=== PATIENT | male | born 1990 | race Caucasian/White ===

== ENCOUNTER 2020-06-25 16:57 | Inpatient (IN) | payer MEDICARE, MEDICAID, SELFPAY ==
[2020-06-25] VITALS (16 sets, daily range): BP systolic 170–248; BP diastolic 86–134; PULSE 65–81; RESP 15–28; TEMP 37.1; O2SAT 95–100
--- NOTE | ~2020-06-25 | XR_ITS ---
XR chest 1V portable 06/25/2020 18:02 Indication: Shortness of breath. Hypertension. Procedure: AP portable chest Comparison: No prior studies for comparison. Findings: Cardiomegaly with interstitial edema. No pleural effusion or pneumothorax. No acute osseous abnormality. Impression: 1: Moderate cardiomegaly with interstitial edema. Reviewed, dictated and finalized at location A. Impression: 1: Moderate cardiomegaly with interstitial edema.
--- NOTE | 2020-06-25 17:10 | ECG_ITS ---
Measurements Intervals [place] Rate: 80 P: 5 WI: 181 QRS: 11 QRSD: 107 T: 122 QT: 411 QTc: 477 Interpretive Statements SINUS RHYTHM DELAYED PRECORDIAL R/S TRANSITION LEFT VENTRICULAR HYPERTROPHY WITH ST-T CHANGE ST-T WAVE ABNORMALITY IN HIGH LATERAL LEADS- CONSIDER ISCHEMIA BASELINE ARTIFACT- V5 ABNORMAL ECG Electronically Signed On 06-25-2020 19:44:27 CDT by Patrick Sam D.O.
--- NOTE | 2020-06-25 17:22 | ED.GENADULT ---
HPI - General Adult General Chief complaint: Recheck/Abnormal Lab/Rx Stated complaint: elevated bp Time Seen by Provider: 06/25/20 17:10 Source: patient and family History of Present Illness HPI narrative: Patient is a 29 y/o male complaining of chronic, moderate SOB that has been going on for more than 1 year. He states that his SOB is worse with exertion. He can not lay down for sleep and he has to sleep in a chair. He also has been having chronic mild mid sternal chest pain for several month. He has been out of his medications because he missed appointments with his previous doctor. He saw Dr. Rodriguez today as new patient today. He was directed to be evaluated in ED because his BP was extremely high in the office. Related Data Allergies Allergy/AdvReac Type Severity Reaction Status Date / Time No Known Allergies Allergy Unverified 06/25/20 15:20 Review of Systems Constitutional: Constitutional: Denies chills, Denies fever(s), Denies headache(s) and Denies weakness Eyes: Eyes: Denies blurry vision ENT: Denies headache(s) and Denies neck pain Cardiovascular: Cardiovascular: Reports chest pain and Reports dyspnea Respiratory: Respiratory: Denies cough and Reports dyspnea Gastrointestinal: Gastrointestinal: Denies abdominal pain, Denies diarrhea, Denies nausea and Denies vomiting Genitourinary: Genitourinary: Denies hematuria and Denies dysuria Musculoskeletal: Musculoskeletal: Denies back pain and Denies neck pain Neurologic: Denies headache(s) and Denies weakness PMFSH Past Medical History Medical History Broken femur Depression with anxiety Headache, migraine Sleep apnea Surgical History Surgical History Hx of tonsillectomy Lower extremity surgery planned broken femur, with graph Family History Family History Mother Cancer Fibromyalgia Vascular problem Obese Father Cancer Obese Grandparent Diabetes mellitus Hypertension Obese CHF (congestive heart failure) Social History Social History Smoking status: Never smoker Second hand tobacco smoke exposure: Yes Alcohol intake: never Substance use type: does not use Gender identity (if verbalized by the patient): Male Spiritual care concerns: No Exam Const: General: no acute distress and well developed Nutritional Appearance: obese Orientation/consciousness: oriented to person, oriented to place, oriented to time and patient oriented x3 HENMT: Head: normocephalic Ears: external ears normal General nose exam: Normal external nose present Eyes: General: appearance normal, both eyes and all related structures Conjunctivae: conjunctivae normal Neck: Neck: normal visual inspection and full ROM Chest: Chest palpation & inspection: normal inspection of the chest and no tenderness Resp: Effort & Inspection: normal respiratory effort Auscultation: clear to auscultation bilaterally Cardio: Rate: regular rate Rhythm: regular rhythm GI: GI Palp: No abdominal tenderness and Yes Soft to palpation Skin: General skin exam: normal color and turgor normal Neuro: General: oriented to person, oriented to place, oriented to time and patient oriented x3 Cognition (Neuro): normal cognition Extrem: General: normal to inspection, full ROM and no pedal edema Psych: Appearance: grossly normal Mental Status: mental status grossly normal Affect: normal affect Course Consultations Consultation #1: Discussed with NAILA Ca, who agrees to admit. Date: 06/25/20 Time: 18:30 Vital Signs Vital signs: Vital Signs Pulse Rate 80 06/25/20 17:17 Respiratory Rate 20 06/25/20 17:17 Blood Pressure 248/134 H 06/25/20 17:17 Pulse Oximetry 100 06/25/20 17:17 Pulse Rate 76 06/25/20 19:01 Respiratory Rate 17 06/25/20
[2020-06-25 17:42] LABS: Basophils Percent Auto 0.3 % (0.2-1.2); Eosinophils Absolute Auto 0.4 K/mm3 (0-0.3); Eosinophils Percent Auto 4.2 % (0-4.4); Hematocrit 34.7 % (42.0-52.0); Hemoglobin 10.3 g/dL (14.0-18.0); Immature Granulocyte Absolute 0.04 K/mm3 (0.00-0.031); Immature Granulocyte Percent A 0.4 % (0-0.5); Lymphocytes Absolute Auto 1.54 K/mm3 (0.9-3.2); Lymphocytes Percent Auto 16.1 % (18.3-44.2); Mean Corpuscular HGB Conc 29.7 g/dl (32-36); Mean Corpuscular Volume 77.6 fl (80-100); Mean Platelet Volume 10.7 fl (7.4-10.4); Monocytes Absolute Auto 0.6 K/mm3 (0.1-0.6); Monocytes Percent Auto 6.5 % (2.6-8.5); Neutrophils Percent Auto 72.5 % (45.5-73.1); Platelet Count Result 272 k/mm3 (150-375); Red Blood Count 4.47 M/mm3 (4.6-6.20); Red Cell Distribution Width 15.6 % (11.5-14.5); White Blood Count 9.6 K/mm3 (4.5-10.0)
[2020-06-25 17:48] LABS: Hypochromasia 1+ (NORMAL); Platelet Estimate Adequate (Adequate)
[2020-06-25] MEDS: amLODIPine BESYLATE 5 MG TABLET 10 MG PO (17:49)
[2020-06-25] MEDS: LABETALOL HCL INJ 100 MG/20 ML VIAL 20 MG IV PUSH (17:49)
[2020-06-25 17:54] LABS: Alanine Aminotransferase 25 U/L (4-50); Albumin Level 3.8 g/dL (3.5-5.1); Alkaline Phosphatase 77 U/L (38-126); Anion Gap 7 mmol/L (8-16); Aspartate Amino Transferase 28 U/L (17-59); Bilirubin,Total 0.3 mg/dL (0.2-1.3); Blood Urea Nitrogen 17 mg/dL (9-20); Calcium 8.5 mg/dL (8.4-10.2); Carbon Dioxide 27 mmol/L (22-30); Chloride 104 mmol/L (98-107); Estimated CRCL calculation 215 ml/min; Estimated Glomerular Filt Rate > 60; Glucose 116 mg/dL (75-110); Potassium 3.9 mmol/L (3.4-5.0); Sodium 138 mmol/L (137-145)
[2020-06-25 18:12] LABS: NT Pro B Type Natriuretic Pept 988 PG/ML (5-100); Troponin I 0.049 ng/mL (0.000-0.034)
[2020-06-25] MEDS: hydroCHLOROthiazide 25 MG TABLET PO (18:15)
[2020-06-25] MEDS: lisinopriL 20 MG TABLET PO (18:16)
[2020-06-25] MEDS: FUROSEMIDE INJ 40 MG/4 ML VIAL IV PUSH (18:51)
--- NOTE | 2020-06-25 19:51 | PC.NURSE ---
This patient, Enoc Guan Jr., was admitted to Intensive Care Unit-12. Patient/family oriented to hospital policies and general routines including ID bracelet, bed and alarms, visiting hours, pain management, procedures, bathroom and other care routines, personal items, smoking policy, room service/diet, and visiting hours. Valuables list has been completed. Information on how to activate the Rapid Response Team has been discussed. Patient/Family are encouraged to report perceived risks to care and to ask questions if they do not understand what they are told or what they should do.
[2020-06-25] MEDS: cloNIDine HCL 0.2 MG TABLET PO (20:39)
[2020-06-25 22:08] LABS: Troponin I 0.053 ng/mL (0.000-0.034)
--- NOTE | 2020-06-25 23:07 | PM.IMHP ---
H&P: HPI History of Present Illness Date/Time: 06/25/20 21:15 Chief complaint: shortness of breath Narrative: Enoc Guan Jr. is a 29 year old male With a past medical history of super morbid obesity , chronic lymphedema, hypertension and CHF who presented to the ER from primary care provider's office due to shortness of breath and uncontrolled hypertension. The patient had presented to Primary care provider's office to be established his were as high as 220/110 at the office. The patient has had difficulty with shortness of breath, orthopnea, paroxysmal nocturnal dyspnea, and worsening lower extremity edema on and off for the last year and a half. He was last hospitalized for said symptoms in February of 2020 at [facility]. He reports that he was discharged on several medications but he does not know the names of the medications. He stated the yet the medications filled but there is no record of the medications on external med history. The patient reported either got the meds filled at [facility] or [facility]. He states that he has not weighed himself in at least 5 years. He did not know what he was weight Was when he was hospitalized at [facility]. He knows that he was discharged on a blood pressure medicine that was once a day another blood pressure medicine that was twice a day and a diuretic. He has not taken any medications at least since March. He does not have a blood pressure cuff at home. He reports worsening dyspnea with exertion. He does have increased chest pressure any time he gets up and walks. He attributes this to his obesity. He did have a sleep study as a child that was inconclusive. He reports that he sleeps sitting up in a chair. He cannot sleep in a bed because he starts to panic and cannot breathe. He reports that he has given up on even trying to lose weight. He is apathetic and has no interest in discussing weight loss options. he reports that he was always a chunky child. Once he was in late grade school his weight became a problem. Review of Systems Review of Systems: Narrative: 12 systems were reviewed with pertinent positives and negatives per HPI. Except as documented in the HPI, all other systems were reviewed and are negative. [facility] Past Medical History Medical History (Updated 06/26/20 @ 01:35 by Namita Ferrera DO) CHF (congestive heart failure) Depression with anxiety Headache, migraine Hypothyroidism Morbid obesity with BMI of 70 and over, adult Surgical History Surgical History (Updated 06/25/20 @ 23:09 by Namita Ferrera DO) Broken femur left femur fracture with ORIF approximately 2011 Hx of tonsillectomy Family History Family History Mother Cancer Fibromyalgia Vascular problem Obese Father Cancer Obese Grandparent Diabetes mellitus Hypertension Obese CHF (congestive heart failure) Social History Social History (Updated 06/26/20 @ 01:25 by Namita Ferrera DO) Social History: The patient lives in low-income housing . He is on state aid. He is independent in activities of daily living. He spends much of his day playing video games. He has a cat at home. Primary care provider: Josephine Loredo NP Smoking status: Never smoker Second hand tobacco smoke exposure: Yes Alcohol intake: never Substance use type: does not use Gender identity (if verbalized by the patient): Male Spiritual care concerns: No Meds Home Medications and Allergies Home Medications Medication Instructions Recorded Confirmed Type Unable to Obtain Home Medications 06/25/20 06/25/20 History Allergies Allergy/AdvReac Type Severity Reaction Status Date / Time No Known Allergies Allergy Unverified 06/25/20 15:20 Vital Signs Vital Signs - 24 hr 06/25/20 17:17 06/25/20 17:51 06/25/20 17:54 Temperature Pulse Rate 80 81 68 Respiratory Rate 20 20 20 Blood Pre
[2020-06-25] MEDS: ACETAMINOPHEN 325 MG TABLET 650 MG PO (23:45)
[2020-06-26] VITALS (9 sets, daily range): BP systolic 166–187; BP diastolic 82–122; PULSE 59–78; RESP 19–28; TEMP 36.3–37.2; O2SAT 96–99
--- NOTE | 2020-06-26 | ECHO_ITS ---
Patient Info Name: Enoc Guan Age: 29 years : 1990 Gender: Male Ht: 71 in Wt: 686 lbs BSA: 4.17 m2 HR: 67 bpm BP: 187 / 122 mmHg Technical Quality: Good Exam Date: 06/26/2020 7:52 AM Exam Location: [facility] Patient Status: Inpatient Admit Date: 06/25/2020 Staff Ordering Physician: Namita Ferrera DO Cloth Calender: Joey Lewis RDCS, RT Attending Provider: Kee Seals MD Referring Physician: Maisha BRIGHT; Exam Type: CA echo dop color flow w con Study Info Indications I11.0 - Hypertensive heart disease with heart failure Complete two-dimensional, color flow and Doppler transthoracic echocardiogram is performed with contrast to opacify the left ventricle and to improve the deliniation of the left ventricle endocardial borders. Summary 1. Left ventricular chamber dimension is moderately enlarged. 2. Definity contrast administered improved wall motion interpretation. 3. Left ventricular systolic function is normal, estimated at 55-60%. 4. There is moderately increased left ventricular wall thickness. 5. The left ventricular diastolic function is grade III diastolic dysfunction. 6. E/e' 27 is significantly elevated. 7. Left atrial chamber dimension is mildly enlarged. 8. There is trace mitral valve regurgitation. 9. There is trace pulmonic regurgitation. 10. The aortic root size at the sinus of Valsalva is mildly dilated at 4.1 cm. 11. Dilated inferior vena cava with <50% collapse upon inspiration consistent with significantly elevated right atrial pressure, 15 mmHg. Left Ventricle E/e' 27 is significantly elevated. Definity contrast administered improved wall motion interpretation. Left ventricular chamber dimension is moderately enlarged. Left ventricular systolic function is normal, estimated at 55-60%. There is moderately increased left ventricular wall thickness. The left ventricular diastolic function is grade III diastolic dysfunction. Right Ventricle Right ventricular chamber dimension is not well visualized. Left Atria Left atrial chamber dimension is mildly enlarged. Right Atria Right atrial chamber dimension is not well visualized. Aortic Valve The aortic valve is trileaflet. There is no aortic valve stenosis. There is no aortic valve regurgitation. Pulmonic Valve There is trace pulmonic regurgitation. Mitral Valve There is no mitral valve stenosis. There is trace mitral valve regurgitation. Tricuspid Valve There is no tricuspid valve regurgitation. Pericardium/Pleural There is no pericardial effusion. Inferior Vena Cava Dilated inferior vena cava with <50% collapse upon inspiration consistent with significantly elevated right atrial pressure, 15 mmHg. Aorta The aortic root size at the sinus of Valsalva is mildly dilated at 4.1 cm. Left Ventricular Outflow Tract Name Value Normal LVOT 2D LVOT Diameter 2.84 cm LVOT Doppler LVOT Peak Gradient 3 mmHg LVOT Mean Gradient 2 mmHg LVOT VTI 16.33 cm LVOT VTI/AV VTI Ratio 0.71
[2020-06-26 00:23] LABS: Cholesterol 166 mg/dL (0-200); HDL Direct 24 mg/dL; Triglycerides 90 mg/dL (<150)
[2020-06-26 00:34] LABS: LDL Cholesterol Direct 118 mg/dL
[2020-06-26 00:50] LABS: Iron 25 ug/dL (49-181)
[2020-06-26 01:01] LABS: Percent Iron Saturation 7 % (20-50)
[2020-06-26 01:28] LABS: Folic Acid 8.2 ng/mL (2.76->20)
[2020-06-26 02:51] LABS: Free T4 Free Thyroxine Reflex 0.88 ng/dL (0.78-2.19)
[2020-06-26 03:34] LABS: Total Triiodothyronine (T3) 1.04 NG/ML (0.97-1.69)
[2020-06-26 03:57] LABS: Hemoglobin A1C 5.4 % (<5.7)
[2020-06-26] MEDS: PERFLUTREN LIPID MICROSPHERES 1.5 ML VIAL DILUTED TO 10 ML TOTAL VOLUME IV PUSH (08:32)
[2020-06-26 08:59] LABS: Hemoglobin 9.8 g/dL (14.0-18.0); Mean Corpuscular HGB Conc 29.7 g/dl (32-36); Mean Corpuscular Hemoglobin 23.2 pg (26-34); Mean Platelet Volume 10.4 fl (7.4-10.4); Platelet Count Result 251 k/mm3 (150-375); Red Blood Count 4.23 M/mm3 (4.6-6.20); Red Cell Distribution Width 15.4 % (11.5-14.5); White Blood Count 8.4 K/mm3 (4.5-10.0)
[2020-06-26] MEDS: CYANOCOBALAMIN INJ 1,000 MCG/ML VIAL 1000 MCG IM (09:00)
[2020-06-26] MEDS: ENOXAPARIN 40 MG/0.4 ML SYRINGE SUB-Q ×2 (09:01→21:04)
[2020-06-26] MEDS: amLODIPine BESYLATE 5 MG TABLET PO ×2 (09:02→12:45)
[2020-06-26] MEDS: lisinopriL 20 MG TABLET PO (09:02)
[2020-06-26] MEDS: PANTOPRAZOLE 40 MG TABLET PO (09:02)
[2020-06-26 09:15] LABS: Anion Gap 5 mmol/L (8-16); Blood Urea Nitrogen 14 mg/dL (9-20); Calcium 8.5 mg/dL (8.4-10.2); Carbon Dioxide 30 mmol/L (22-30); Chloride 102 mmol/L (98-107); Estimated CRCL calculation 215 ml/min; Estimated Glomerular Filt Rate > 60; Glucose 108 mg/dL (75-110); Potassium 3.4 mmol/L (3.4-5.0); Sodium 137 mmol/L (137-145)
[2020-06-26] MEDS: POTASSIUM CHLORIDE 20 MEQ TABLET 40 MEQ PO (12:28)
[2020-06-26] MEDS: ACETAMINOPHEN 325 MG TABLET 650 MG PO ×2 (12:28→23:11)
--- NOTE | 2020-06-26 13:43 | PC.NURSE ---
This patient, Enoc Guan Jr., was transferred to [facility] on 06/26/20 at 1339. Personal belongings sent with patient. Belongings list checked and signed with receiving. Report given to ADIN Ford. Appropriate documentation sent with patient.
--- NOTE | 2020-06-26 16:10 | PM.IMPN ---
Progress Note: A&P Assessment and Plan (1) Hypertensive urgency: Code(s): I16.0 - Hypertensive urgency Status: Acute Assessment and Plan: The patient was given lisinopril And Norvasc in the ER as well as Lasix. he received a dose of clonidine shortly after arrival to the ICU. . Will continue patient on Norvasc and lisinopril. Will add additional medications as needed. do not want to drop his pressure too rapidly which would due to decreased renal perfusion. Repeat echo here today revealed some diastolic dysfunction as below, continue IV Lasix (2) CHF (congestive heart failure): Qualifiers: Heart failure chronicity: unspecified Heart failure type: unspecified Qualified Code(s): I50.9 - Heart failure, unspecified Code(s): I50.9 - Heart failure, unspecified Status: Acute Assessment and Plan: The patient reports that he always responds well to Lasix. He denies an actual diagnosis of CHF but has been told that if factors do not change that he will have worsening cardiac issues EF today 55-60% but grade 3 diastolic dysfunction. continue to control blood pressure and continue diuresing for now (3) Depression with anxiety: Code(s): F41.8 - Other specified anxiety disorders Status: Acute Assessment and Plan: patient would benefit from counseling and or from a clot ext treatment for his longstanding depression which he reports has been present since childhood. (4) Morbid obesity with BMI of 70 and over, adult: Code(s): E66.01 - Morbid (severe) obesity due to excess calories; Z68.45 - Body mass index (BMI) 70 or greater, adult Status: Acute Assessment and Plan: The patient reports that he has not interested in diet and lifestyle modification information. The risk of continued extreme obesity were discussed with the patient in detail including heart failure, , diabetes and skin infections among other issues by Dr. Ferrera. A calorie calculator suggests that the patient has to be eating around 4800 calories a day to maintain his current weight. (5) Obstructive sleep apnea: Code(s): G47.33 - Obstructive sleep apnea (adult) (pediatric) Status: Acute Assessment and Plan: likely obstructive sleep apnea and would not be surprised the patient did not have some obesity hypoventilation component. Apnea link has been ordered (6) Hypothyroidism: Qualifiers: Hypothyroidism type: unspecified Qualified Code(s): E03.9 - Hypothyroidism, unspecified Code(s): E03.9 - Hypothyroidism, unspecified Status: Acute Assessment and Plan: patient has been noncompliant with medications. TSH borderline elevated at 4.7 and hemoglobin A1c normal at 5.4 (7) Anemia: Qualifiers: Anemia type: iron deficiency Iron deficiency anemia type: inadequate dietary iron intake Qualified Code(s): D50.8 - Other iron deficiency anemias Code(s): D64.9 - Anemia, unspecified Status: Acute Assessment and Plan: given microcytic indices this is likely iron deficiency anemia. and iron studies are compatible with the same Protonix p.o. and replace iron IV B12 low normal also 221 so on IM B12 also given Subjective Date/time seen: 06/26/20 16:10 Interval history: date of visit 06/26. 29-year-old obese male with hypertension admitted from his physician's office with accelerated hypertension and increasing shortness of breath.. This a.m. pressures down patient today feels better. Never had any palpitation or chest discomfort. Exam Narrative: Exam Narrative: Blood pressure 176/82 pulse 74 saturating 99% on room air afebrile lungs clear CV regular rate rhythm no murmurs abdomen morbidly obese nontender extremities are some chronic lymphedema type changes but no pitting edema Objective Data Vital Signs Vital Signs: Vital Signs - 24 hr
[2020-06-27 05:42] LABS: Basophils Percent Auto 0.4 % (0.2-1.2); Eosinophils Absolute Auto 0.4 K/mm3 (0-0.3); Eosinophils Percent Auto 4.5 % (0-4.4); Hematocrit 32.2 % (42.0-52.0); Hemoglobin 9.7 g/dL (14.0-18.0); Immature Granulocyte Absolute 0.06 K/mm3 (0.00-0.031); Immature Granulocyte Percent A 0.7 % (0-0.5); Lymphocytes Absolute Auto 2.41 K/mm3 (0.9-3.2); Lymphocytes Percent Auto 26.7 % (18.3-44.2); Mean Corpuscular HGB Conc 30.1 g/dl (32-36); Mean Corpuscular Hemoglobin 23.3 pg (26-34); Mean Corpuscular Volume 77.4 fl (80-100); Mean Platelet Volume 10.4 fl (7.4-10.4); Monocytes Absolute Auto 0.7 K/mm3 (0.1-0.6); Monocytes Percent Auto 7.5 % (2.6-8.5); Neutrophils Absolute Auto 5.4 K/mm3 (1.3-6.7); Neutrophils Percent Auto 60.2 % (45.5-73.1); Platelet Count Result 243 k/mm3 (150-375); Red Blood Count 4.16 M/mm3 (4.6-6.20); Red Cell Distribution Width 15.4 % (11.5-14.5)
[2020-06-27 06:00] VITALS: BP 205/95; PULSE 65; RESP 22; TEMP 36.3; O2SAT 99
[2020-06-27 06:01] LABS: Anion Gap 5 mmol/L (8-16); Blood Urea Nitrogen 14 mg/dL (9-20); Calcium 8.6 mg/dL (8.4-10.2); Carbon Dioxide 28 mmol/L (22-30); Chloride 102 mmol/L (98-107); Estimated CRCL calculation 235 ml/min; Estimated Glomerular Filt Rate > 60; Glucose 93 mg/dL (75-110); Potassium 3.9 mmol/L (3.4-5.0); Sodium 135 mmol/L (137-145)
[2020-06-27] MEDS: amLODIPine BESYLATE 5 MG TABLET 10 MG PO (06:46)
[2020-06-27] MEDS: lisinopriL 20 MG TABLET PO (06:47)
[2020-06-27] MEDS: ACETAMINOPHEN 325 MG TABLET 650 MG PO (07:21)
[2020-06-27] MEDS: PANTOPRAZOLE 40 MG TABLET PO (08:00)
[2020-06-27] MEDS: ENOXAPARIN 40 MG/0.4 ML SYRINGE SUB-Q (08:00)
--- NOTE | 2020-06-27 10:17 | P.CDI_ITS ---
CDI Query Clarification Request - CHF,unspecified type and unspecified chronicity has been documented -06/26 echo with EF 55-60%, grade III diastolic dysfunction -Lasix 40mg IV given in the ED x1 -CXR impression moderate cardiomegaly with interstitial edema Please further clarify type and acuity of CHF: * Systolic *Acute * Diastolic *Chronic * Both systolic and diastolic *Acute on chronic * Unable to determine *Unable to determine
[2020-06-27 11:25] VITALS: BP 156/97
[2020-06-27] MEDS: CYANOCOBALAMIN INJ 1,000 MCG/ML VIAL 1000 MCG IM (13:09)
[2020-06-27] MEDS: IRON SUCROSE COMPLEX 400 MG in SODIUM CHLORIDE 0.9% IV 250 ML 108 MG IVPB (13:09)
--- NOTE | 2020-06-27 14:15 | PM.DS ---
DS: Admitting Diagnosis Admitting Diagnosis Admitting Diagnosis: shortness of breath DS: Discharge Diagnosis Discharge Diagnosis (1) Hypertensive urgency: Code(s): I16.0 - Hypertensive urgency Status: Acute Assessment and Plan: The patient was given lisinopril And Norvasc in the ER as well as Lasix. he received a dose of clonidine shortly after arrival to the ICU. . continued patient on Norvasc and lisinopril. creatinine remain normal at 1.0. no beta-jennifer added since his heart rate was usually in the 50s or 60s echo revealed some diastolic dysfunction grade 3 with normal EF 55-60% (2) CHF (congestive heart failure): Qualifiers: Heart failure chronicity: unspecified Heart failure type: unspecified Qualified Code(s): I50.9 - Heart failure, unspecified Code(s): I50.9 - Heart failure, unspecified Status: Acute Assessment and Plan: probable acute on chronic diastolic heart failure EF 55-60% but grade 3 diastolic dysfunction. continue to control blood pressure no beta-jennifer was added due to the fact that is pulse was usually in the 50s or 60s (3) Morbid obesity with BMI of 70 and over, adult: Code(s): E66.01 - Morbid (severe) obesity due to excess calories; Z68.45 - Body mass index (BMI) 70 or greater, adult Status: Acute Assessment and Plan: The patient reports that he has not interested in diet and lifestyle modification information. although he did agree to start a walking program. The risk of continued extreme obesity were discussed with the patient in detail including heart failure, , diabetes and skin infections among other issues by Dr. Ferrera. A calorie calculator suggests that the patient has to be eating around 4800 calories a day to maintain his current weight. Significantly the apnea link was negative for sleep apnea with no hypoxia reported and AHI of 0 as stated above (4) Hypothyroidism: Qualifiers: Hypothyroidism type: unspecified Qualified Code(s): E03.9 - Hypothyroidism, unspecified Code(s): E03.9 - Hypothyroidism, unspecified Status: Acute Assessment and Plan: patient has been noncompliant with medications. TSH borderline elevated at 4.7 and hemoglobin A1c normal at 5.4 (5) Anemia: Qualifiers: Anemia type: iron deficiency Iron deficiency anemia type: inadequate dietary iron intake Qualified Code(s): D50.8 - Other iron deficiency anemias Code(s): D64.9 - Anemia, unspecified Status: Acute Assessment and Plan: given microcytic indices and iron studies are compatible with the same Protonix p.o. and replaced iron IV 700 mg divided over 2 days B12 low normal also 221 so on IM B12 1000 mg on 2 separate days will have follow-up CBC 07/10 and if remains anemic may need GI eval DS: Summary Hospital Course Hospital Course: 29-year-old morbidly obese hypertensive male admitted with hypertensive urgency and shortness of breath. Was treated with CHAU-inhibitor, amlodipine, and IV diuresis initially. Pressure came down and will be maintained on the CHAU-inhibitor and calcium channel jennifer. No beta-jennifer added due to the fact his heart rate was usually 50s to 60s. Echocardiogram revealed normal ejection fraction 55-60% with grade 3 diastolic dysfunction. Apnea link was negative for sleep apnea with AHI of 0 and no nocturnal hypoxia follow-up with lab and 2 weeks and primary care shortly thereafter Time Spent with Patient Time attestation: Total time spent providing and/or coordinating discharge services:35 minutes Exam Narrative: Exam Narrative: condition on discharge blood pressure 156/96 pulse is 66 saturating 99% on room air afebrile lungs clear CV regular rate rhythm extremities some lymphedema but no pitting edema up and about walking without shortness of breath much improved from admission and tabby
[2020-06-27 14:18] VITALS: BP 173/85; PULSE 68; RESP 20; TEMP 36.6; O2SAT 100
== END 2020-06-27 15:42 | disposition home or self-care (01) | DRG 304 ==
LOC: ANHED 18:40 → ANHICU 19:41 → ANH2MED 06-26 13:29
PROVIDERS: Internal Medicine; Admitting Provider Internal Medicine; Emergency Provider Emergency Medicine; PCP Internal Medicine; Visit Provider Internal Medicine
DX: I16.0 Hypertensive urgency (principal); I50.33 Acute on chronic diastolic (congestive) heart failure; Z68.43 Body mass index [BMI] 50.0-59.9, adult; I11.0 Hypertensive heart disease with heart failure; E03.9 Hypothyroidism, unspecified; E66.01 Morbid (severe) obesity due to excess calories; F41.8 Other specified anxiety disorders; I89.0 Lymphedema, not elsewhere classified; G47.33 Obstructive sleep apnea (adult) (pediatric); D50.8 Other iron deficiency anemias; Z91.14 Patient's other noncompliance with medication regimen
CPT/HCPCS: 36415; 71045; 80048; 80053; 80061; 82607; 82728; 82746; 83036; 83540; 83550; 83880; 84439; 84443; 84480; 84484; 85025; 85027; 93005; 94762; 96374; 96375; 99285; A9270; C8929; J1650; J1756; J1940; J3420; J7050; Q9957

== ENCOUNTER 2022-10-16 09:55 | Outpatient (CLI) | payer OTHER, SELFPAY ==
[2022-10-16 17:32] LABS: Alanine Aminotransferase 31 U/L (6-50); Albumin Level 4.1 g/dL (3.5-5.1); Alkaline Phosphatase 77 U/L (38-126); Anion Gap 3 mmol/L (8-16); Aspartate Amino Transferase 47 U/L (17-59); Bilirubin,Total 0.4 mg/dL (0.2-1.3); Blood Urea Nitrogen 11 mg/dL (9-20); Calcium 8.7 mg/dL (8.4-10.2); Carbon Dioxide 31 mmol/L (22-30); Chloride 101 mmol/L (98-107); Cholesterol 187 mg/dL (0-200); Estimated Glomerular Filt Rate > 60; Glucose 98 mg/dL (65-110); HDL Direct 28 mg/dL; Sodium 135 mmol/L (137-145); Triglycerides 89 mg/dL (<150)
[2022-10-16 17:43] LABS: LDL Cholesterol Direct 116 mg/dL
[2022-10-16 17:45] LABS: Basophils Percent Auto 0.5 % (0.2-1.2); Eosinophils Absolute Auto 0.5 K/mm3 (0-0.3); Eosinophils Percent Auto 5.1 % (0-4.4); Hematocrit 39.6 % (42.0-52.0); Hemoglobin 11.7 g/dL (14.0-18.0); Immature Granulocyte Absolute 0.05 K/mm3 (0.00-0.031); Immature Granulocyte Percent A 0.6 % (0-0.5); Lymphocytes Absolute Auto 1.93 K/mm3 (0.9-3.2); Lymphocytes Percent Auto 21.8 % (18.3-44.2); Mean Corpuscular HGB Conc 29.5 g/dl (32-36); Mean Corpuscular Hemoglobin 24.6 pg (26-34); Mean Corpuscular Volume 83.2 fl (80-100); Mean Platelet Volume 10.2 fl (7.4-10.4); Monocytes Absolute Auto 0.7 K/mm3 (0.1-0.6); Monocytes Percent Auto 7.6 % (2.6-8.5); Neutrophils Absolute Auto 5.7 K/mm3 (1.3-6.7); Neutrophils Percent Auto 64.4 % (45.5-73.1); Platelet Count Result 311 k/mm3 (150-375); Red Blood Count 4.76 M/mm3 (4.6-6.20); Red Cell Distribution Width 14.7 % (11.5-14.5); White Blood Count 8.8 K/mm3 (4.5-10.0)
[2022-10-16 18:30] LABS: Hypochromasia 1+ (NORMAL); Platelet Estimate Adequate (Adequate); Schistocytes None Seen (NORMAL)
== END 2022-10-16 09:56 | disposition home or self-care (01) ==
LOC: ANHGOSHLAB 09:57
PROVIDERS: PCP Internal Medicine; Visit Provider Nurse Practitioner
DX: D50.9 Iron deficiency anemia, unspecified (principal); G47.33 Obstructive sleep apnea (adult) (pediatric); E03.9 Hypothyroidism, unspecified; I10 Essential (primary) hypertension; Z13.220 Encounter for screening for lipoid disorders
CPT/HCPCS: 36415; 80053; 80061; 84443; 85025

== ENCOUNTER 2023-01-25 10:45 | Outpatient (RCR) | payer OTHER, SELFPAY ==
--- NOTE | 2022-11-17 14:59 | PTOPEVAL1 ---
Assessment and note entered by Estefanía Burger, PT, CLT Evaluation Information Assessment Status Evaluation Diagnosis lymphedema R and L LE Onset 2018 Reported Pain Level Pain Score 3: Self Report Additional Pain Score Comments tight and heavy in legs Assessment PT Clinical Summary Evan has the diagnosis of R and L LE lymphedema. He has multiple medical issues to make him at risk for lymphedema: HTN, thyroid, CHF, obesity 698#, cellulitis L LE, L femur fracture with ORIF, sleep apnea, enlarged abdominal pannus. With the evaluation, he has fibrotic tissue, papillomas and skin changes over both lower leg--L more involved than the R leg. He has good mobility and is indep with gait. He has been sleeping in a chair with his legs down. And is working on healthy eating and weight loss. He has a consult upcoming with a surgeon for gastric bypass surgery. Skilled PT services are indicated for lymphedema care: multilayer compression wraps, manual lymph drainage, intermittent compression pump, LE exercises, education for self care and appropriate compression garment for him to obtain. Plan of Care Interventions Intermittent Compression,Lymphedema Compression Pump ,Manual Lymph Drainage,Patient/Caregiver Education, Therapeutic Exercise PT Services Indicated Yes Treatment Frequency and 0-3x/wk x 6 weeks, due to therapists' availability Duration not able to start treatment immediately These treatments will address the objective and functional deficits as defined above. The patient will be advanced safely and appropriately in order for the patient to progress towards his/her prior level of function. Additional exercises will be introduced and as well as a comprehensive home exercise program upon discharge, if needed, ?to ensure carryover of functional gains achieved in the clinic. This treatment plan has been reviewed and agreement upon by the patient.
--- NOTE | 2022-12-10 10:52 | PCPTNOTE ---
Patient called & cancelled scheduled appointment this date per patient request.
--- NOTE | 2022-12-15 09:51 | PCPTNOTE ---
pt called and canceled today's appt 15 min prior to the appt time, stated having bad luck.
--- NOTE | 2022-12-18 10:42 | PCPTNOTE ---
Pt did not show as of 20 minutes after appointment time. Pt is usually early for his appointments. Attempted to call Pt, unable to leave voicemail. Contacted Pt's Aunt, per emergency contacts and release to be able to talk with her about Pt. After speaking with her it was discovered this appointment was added on, Pt and Pt's Aunt missed this appointment in translation. Cancelled appointment due to confusion. Reprinted Pt's schedule and placed in Pt's file to give to him next visit.
--- NOTE | 2022-12-22 09:43 | PCPTNOTE ---
pt called and canceled due to illness;
--- NOTE | 2022-12-29 11:44 | PTOPPROG ---
Assessment and note entered by Estefanía Burger, PT Evaluation Information Assessment Status Progress Diagnosis lymphedema R and L LE Onset 2018 Subjective Information Enoc reports: can feel more in his foot, can move his leg better; the wraps are OK on his legs; have been doing the self massage; took the compression wraps off yesterday, but did not feel like putting them back on yesterday; Assessment PT Clinical Summary Enoc has received 8 PT sessions. One appointment he did not show and 3 were called/ canceled. Compared to the initial evaluation: L LE: there is less redness over leg & less fibrotic tissue; the circumferential measurement of leg, up to 64 cm is 1155.7 cm, decreased by 96.2 cm since initial eval; during treatment, there was more reduction, but he has had the compression wrap off for about 24 hours, so has increased size today; Education is in the process for self care and management of lymphedema. Continue PT lymphedema treatment for L LE and when reduced, to obtain compression garment and then begin compression wraps for R LE. Plan of Care Interventions Lymphedema Compression Pu,Manual Lymph Drainage, Neuro Re-education,Patient/Caregiver Education, Therapeutic Activities,Therapeutic Exercise PT Services Indicated Yes Treatment Frequency and 3x/wk for 4 weeks Duration These treatments will address the objective and functional deficits as defined above. The patient will be advanced safely and appropriately in order for the patient to progress towards his/her prior level of function. Additional exercises will be introduced and as well as a comprehensive home exercise program upon discharge, if needed, ?to ensure carryover of functional gains achieved in the clinic. This treatment plan has been reviewed and agreement upon by the patient.
--- NOTE | 2022-12-29 12:36 | PCPTNOTE ---
Pt's appointment on 12/28/22 was cancelled due to therapist being sick.
--- NOTE | 2022-12-31 09:14 | PCPTNOTE ---
Patient called & cancelled scheduled appointment this date due to being sick.
--- NOTE | 2023-01-04 12:37 | PCPTNOTE ---
Patient called & cancelled scheduled appointment this date due to having transportation issues; med car transportation did not show up.
--- NOTE | 2023-01-11 11:15 | PCPTNOTE ---
Patient called & cancelled scheduled appointment this date due to not feeling well.
--- NOTE | 2023-01-18 08:27 | PCPTNOTE ---
Patient called & cancelled scheduled appointment this date due to not feeling well.
--- NOTE | 2023-01-20 11:32 | PCPTNOTE ---
Patient called & cancelled scheduled appointment this date due to no transportation.
--- NOTE | 2023-01-22 11:41 | PCPTNOTE ---
Patient called & cancelled scheduled appointment this date due to no transportation.
--- NOTE | 2023-01-25 11:25 | PTOPDC ---
Assessment and note entered by Estefanía Burger, PT, CLT Evaluation Information Assessment Status Discharge Diagnosis lymphedema R and L LE Onset 2017 Subjective Information Evan reports: problems with transportation and issues getting here; have not had any compression on his legs for over one week; Reported Pain Level Pain Score 0: Self Report Assessment PT Clinical Summary Evan has received a total of 13 PT sessions for lymphedema of his legs. He did not show for 1 and called/canceled 9 appointments--mostly due to transportation issues. Compared to the last reeval: circumferential measurement of his L leg increased by 33.6 cm and R decreased by 17.1 cm; skin integrity of L lower leg improved slightly with less papillomas and elephantitis/rough skin; continues to have fibrotic tissue over medial thigh and lower leg/ malleoli; Education has been completed for self care of lymphedema--skin care, how to put on compression wraps, leg exercises, self manual lymph drainage. The goals were partially met--for education. Due to poor attendance and poor compliance with lymphedema program--he will be discharged at this time. Plan of Care PT Services Indicated No
== END 2023-01-25 15:19 | disposition home or self-care (01) ==
LOC: ANHPT 10:45
PROVIDERS: PCP Internal Medicine; Visit Provider Nurse Practitioner
DX: I89.0 Lymphedema, not elsewhere classified (principal); E66.9 Obesity, unspecified
CPT/HCPCS: 29581; 97140; 97162

== ENCOUNTER 2024-05-19 07:21 | Outpatient (RCR) | payer OTHER, SELFPAY ==
[2024-05-05 14:26] VITALS: BMI 95.0
== END 2024-07-17 14:50 | disposition home or self-care (01) ==
LOC: ANHWOC 07:21
PROVIDERS: PCP Internal Medicine; Visit Provider Clinical Nurse Specialist
DX: S31.109A Unspecified open wound of abdominal wall, unspecified quadrant without penetration into peritoneal cavity, initial encounter (principal); L08.9 Local infection of the skin and subcutaneous tissue, unspecified; Z48.00 Encounter for change or removal of nonsurgical wound dressing
CPT/HCPCS: 99213; 99214; A9270; G0463

== ENCOUNTER 2024-11-28 13:08 | Outpatient (CLI) | payer OTHER, SELFPAY ==
[2024-11-28] MEDS: PERFLUTREN LIPID MICROSPHERES 1.5 ML VIAL DILUTED TO 10 ML TOTAL VOLUME IV PUSH (13:45)
--- OUTSIDE RECORDS SUMMARY | 2024-11-28 14:59 | XMS_ITS | Referral Summary ---
Author Organization [facility] Address [address] [place] [id number] Care Team Providers Care Tankage Grinder Name Role Phone Rehan Rodriguez DO Primary Care Provider [phone] Allergies No known active allergies Medications ibuprofen (ADVIL,MOTRIN) 100 mg tablet TAKE 1 TABLET 3 TIMES DAILY WITH FOOD NEEDED. 11/08/2013 Active amLODIPine (NORVASC) 10 mg tablet TK 1 T PO D 07/30/2020 Active citalopram (CeleXA) 10 mg tablet TK 1 T PO D 07/17/2020 Active ferrous sulfate 325 mg (65 mg of elemental iron) tablet TK 1 T PO ONCE D 07/17/2020 Active hydroCHLOROthiaz carolina (HYDRODIURIL) 12.5 mg tablet TK 1 T PO D 07/17/2020 Ac tive lisinopriL (PRINIVIL,ZESTRI L) 40 mg tablet TK 1 T PO D 07/30/[address] (PROTONIX) 40 mg EC tablet TK 1 T PO QAM 06/28/2020 Active Active Problems Problem Noted Date Diagnosed Date Morbid obesity 09/12/2020 Knee pain 04/07/2012 Immunizations Immunization Administration Dates Next Due Influenza, Trivalent, Preservative Free, Intramu scular 11/08/2013 Social History Tobacco Use Types Packs/Day Years Used Date Smoking Tobacco: Never Smokeless Tobacco: Never Alcohol Use Standard Drinks/Week Comments Not Currently 0 (1 standard drink = 0.6 oz pur e alcohol) Personal Safety Answer Date Recorded Getting School Help Needed Not on file 12/17 Sex and Gender Information Value Date Recorded Sex Assigned at Not on file Legal Sex Male 6:50 AM DIRECTOR WORKERS COMPENSATION Gender Identity Not on file Sexual Orientation Not on file Last Filed Vital Signs Vital Sign Reading Time Taken Comments Blood Pressure 164/87 12/11/2020 11:14 AM DIRECTOR WORKERS COMPENSATION Pulse 80 12/11/2020 11:14 AM DIRECTOR WORKERS COMPENSATION Temperature 36.3 C (97.3 F) 12/11/2020 11:14 AM DIRECTOR WORKERS COMPENSATION Respiratory Rate 20 11/26/2020 7:40 PM DIRECTOR WORKERS COMPENSATION Oxygen Saturation 97% 12/11/2020 11:14 AM DIRECTOR WORKERS COMPENSATION Inhaled Oxygen Concentration - - Weight 319.5 kg (704 lb 5 oz) 12/11/2020 11:14 A M DIRECTOR WORKERS COMPENSATION Height 179 cm (5' 10.47 ) 12/11/2020 11:14 AM CS T Body Mass Index 99.71 12/11/2020 11:14 AM DIRECTOR WORKERS COMPENSATION Plan of Treatment Not on file Insurance MEDICARE [facility] MEDICARE MEDICARE [facility] Care Teams Tankage Grinder Relationship Specialty Start Date End Date Rehan Rodriguez DO PCP - General Internal Medicine 10/23/20
--- OUTSIDE RECORDS SUMMARY | 2024-11-28 14:59 | XMS_ITS | Encounter Summary ---
Author Organization [facility] Healthcare Address [address] [place] [address] Care Team Providers Care Criminal Defense Attorney Name Role Phone Unknown, Fred Primary Care Provider Unavail able Rehan Rodriguez DO Primary Care Provider [phone]- [phone] Encounter Details Date Type Department Care Team (Late st Contact Info) Description 11/19/2017 Telephone [facility] [address] [place] [address] [place] [id number] [address] Social History Tobacco Use Types Packs/Day Years Used Date Smoking Tobacco: Never Assessed Sex and Gender Information Value Date Recorded Sex Assigned at Not on file Legal Sex Male 6:50 AM LIMNOLOGIST Gender Identity Not on file Sexual Orientation Not on file documented as of this encounter Plan of Treatment Not on file documented as of this encounter Visit Diagnoses Not on filedocumented in this encounter Care Teams Criminal Defense Attorney Relationship Specialty Start Date End Date Unknown, Fred PCP - General 04/28/17 10/22/20 Rehan Rodriguez DO PCP - General Internal Medicine 10/23/20 documented as of this encounter
--- OUTSIDE RECORDS SUMMARY | 2024-11-28 14:59 | XMS_ITS | CONTINUITY OF CARE DOCUMENT ---
Author Name jeri wilcox Address Unknown Organization [facility] Address [address] [place] [address] Phone [phone] Care Team Providers Care Industry Operations Investigator Name Role Phone Jamila Shannon MD Unavailable [phone] Jamila Shannon MD Unavailable [phone] INSURANCE PROVIDERS Payer name Policy type / Coverage type [place] red democrat [employer] [facility] Medicaid 0 [id number] [place] MEDICARE Medicare [id number]
--- OUTSIDE RECORDS SUMMARY | 2024-11-28 14:59 | XMS_ITS | Clinical Summary ---
Author Organization [facility] Address [address] [place] [phone] Care Team Providers Care Handle Bender Name Role Phone Rehan Rodriguez DO Primary Care Provider [phone]- [phone] Allergies No known active allergies Medications ibuprofen [...] Influenza, Trivalent, Preservative Free, Intramu scular 11/08/2013 Surgical History Surgery Date Site/Laterality Comments TONSILLECTOMY LEG SURGERY Medical History Medical History Date Comments Morbid obesity (HCC) CHF (congestive heart failure) (CMS/HCC) (HCC) Anemia Depression GERD (gastroesophageal reflux disease) Hypertension Joint pain Bipolar disorder (HCC) Lymphedema Family History Medical History Relation Name Comments Alcohol abuse Father Depression Father Hypertension Father Mental illness Father Obesity Father Substance Abuse Father Cancer Mother Depression Mother Hypertension Mother Mental illness Mother Obesity Mother Stroke Mother Depression Other grandparents Diabetes Other grandparents Hypertension Other grandparents Mental illness Other grandparents Obesity Other grandparents Stroke Other grandparents Relation Name Status Comments Father Mother Other grandparents Alive Social History Tobacco Use Types Packs/Day Years Used Date Smoking Tobacco: Never Smokeless Tobacco: Never Alcohol Use Standard Drinks/Week Comments Not Currently 0 (1 standard drink = 0.6 oz pur e alcohol) Personal Safety Answer Date Recorded Getting School Help Needed Not on file 12/17 Sex and Gender Information Value Date Recorded Sex Assigned at Not on file Legal Sex Male 6:50 AM DEPARTMENT OF NATURAL RESOURCES OFFICER Gender Identity Not on file Sexual Orientation Not on file Obstetrics History Last Filed Vital Signs Vital Sign Reading Time Taken Comments Blood Pressure 164/87 12/11/2020 11:14 AM DEPARTMENT OF NATURAL RESOURCES OFFICER Pulse 80 12/11/2020 11:14 AM DEPARTMENT OF NATURAL RESOURCES OFFICER Temperature 36.3 C (97.3 F) 12/11/2020 11:14 AM DEPARTMENT OF NATURAL RESOURCES OFFICER Respiratory Rate 20 11/26/2020 7:40 PM DEPARTMENT OF NATURAL RESOURCES OFFICER Oxygen Saturation 97% 12/11/2020 11:14 AM DEPARTMENT OF NATURAL RESOURCES OFFICER Inhaled Oxygen Concentration - - Weight 319.5 kg (704 lb 5 oz) 12/11/2020 11:14 A M DEPARTMENT OF NATURAL RESOURCES OFFICER Height 179 cm (5' 10.47 ) 12/11/2020 11:14 AM CS T Body Mass Index 99.71 12/11/2020 11:14 AM DEPARTMENT OF NATURAL RESOURCES OFFICER Plan of Treatment Not on file Insurance MEDICARE IDPA [facility] MEDICARE MEDICARE [facility] Care Teams Handle Bender Relationship Specialty Start Date End Date Rehan Rodriguez DO PCP - General Internal Medicine 10/23/20
--- NOTE | 2024-11-28 16:16 | IVDEFINITY ---
Prior to administration of IV Definity the patient was educated on the risks and benefits of the imaging enhancing agent including potential adverse side effects. The patient verbalized understanding. Allergies were verified. No exclusion criteria were identified and at least one of the following inclusion criteria were met: 1) physician request, 2) patient technically difficult to image (per the [employer] Society of Echocardiography guidelines of two or more segments not discernable within the apical view), or 3) questionable left ventricular function. ?
== END 2024-11-28 13:09 | disposition home or self-care (01) ==
LOC: ANHCARD 13:08
PROVIDERS: PCP Internal Medicine; Visit Provider Clinical Nurse Specialist
DX: I50.30 Unspecified diastolic (congestive) heart failure (principal); I51.7 Cardiomegaly
CPT/HCPCS: C8929; Q9957

== ENCOUNTER 2025-04-24 14:35 | Outpatient (CLI) | payer OTHER, SELFPAY ==
--- OUTSIDE RECORDS SUMMARY | 2025-04-24 14:37 | XMS_ITS | Referral Summary ---
Author Organization [facility] Address [address] [place] [address] Care Team Providers Care Computing Machine Operator Name Role Phone Rehan Rodriguez DO Primary Care Provider [phone]- [phone] Encounters Date Type Department Care Team Description 03/02/2025 7:15 PM CDT - 03/02/2025 11:59 PM CDT Hospital Encounter [facility] [address] [place] [address] Obstructive sleep apnea (adult) (pediatric) Discharge Disposition: Discharge to home or self care from Last 3 Months Allergies No known active allergies Medications ibuprofen [...] Active Problems Problem Noted Date Diagnosed Date Obstructive sleep apnea (adult) (pediatric) 02/2025 Morbid obesity 09/12/2020 Knee pain 04/07/2012 Immunizations Immunization Administration Dates Next Due Influenza, Trivalent, Preservative Free, Intramu scular 11/08/2013 Social History Tobacco Use Types Packs/Day Years Used Date Smoking Tobacco: Never Smokeless Tobacco: Never Alcohol Use Standard Drinks/Week Comments Not Currently 0 (1 standard drink = 0.6 oz pur e alcohol) Sex and Gender Information Value Date Recorded Sex Assigned at Not on file Legal Sex Male 6:50 AM PROTOCOL MANAGER Gender Identity Not on file Sexual Orientation Not on file Last Filed Vital Signs Vital Sign Reading Time Taken Comments Blood Pressure 164/87 12/11/2020 11:14 AM PROTOCOL MANAGER Pulse 80 12/11/2020 11:14 AM PROTOCOL MANAGER Temperature 36.3 C (97.3 F) 12/11/2020 11:14 AM PROTOCOL MANAGER Respiratory Rate 20 11/26/2020 7:40 PM PROTOCOL MANAGER Oxygen Saturation 97% 12/11/2020 11:14 AM PROTOCOL MANAGER Inhaled Oxygen Concentration - - Weight 319.5 kg (704 lb 5 oz) 12/11/2020 11:14 A M PROTOCOL MANAGER Height 179 cm (5' 10.47) 12/11/2020 11:14 AM CS T Body Mass Index 99.71 12/11/2020 11:14 AM PROTOCOL MANAGER Plan of Treatment Not on file Procedures Procedure Name Priority Date/Time Associated Diagnosis Comments PSG (SIMPLE) Routine 03/05/2025 2:38 PM CDT Obstructive sleep apnea (adult) (pediatric) from Last 3 Months Results * PSG (03/05/2025 2:38 PM CDT) Impressions Winston Wu MD - 03/05/2025 2:38 PM CDT Indication for study: Mr. Guan is a 34-year-old gentleman with chief complaints of snoring, unrefreshing sleep and excessive daytime fatigue and sleepiness. The patient's Culver Sleepiness scale score is 4. Past medical history: Depression and insomnia Vital statistics: Age: 34 years Height: 71 in Weight: 689 lb BMI: 96.5 Procedure: A polysomnographic sleep study was performed. Variables monitored and recorded during the study; EEG, EOG, EKG, Chin EMG, snoring, lower extremity EMG, nasal and oral airflow, chest and abdominal wall movements, oxygen saturation and audio/video monitoring . Unless otherwise noted, polysomnogram was recorded and scored in accordance with recommended parameters as outlined in the AASM Manual for the Scoring of Sleep and Associated Events, Version 2.6. Hypopneas were scored in accordance with acceptable parameters as outlined in Chapter VIII, Part 1: Rules for Adults, Category D, Section 1B. Description of polysomnography findings the patient had 397 minutes of monitored time. Initial segment was assess the patient's baseline. Total time in bed was 269.5 minute. Total sleep time was 231 minutes. Sleep efficiency was 85.7%. Latency from lights out to stage N1 was 13.5 minute, latency to stage N2 from sleep onset was 0.5 minute and latency to stage REM from sleep onset 345 minutes. Sleep stage recording stage wake of 38.5 minute. Stage non-REM comprised 230.5 minute (99.8% of total sleep time). This includes stage N1 of 4.5 minute (1.9% total sleep time), stage N2 of 226 minute (97.8% total sleep time). Stage REM comprised 0.5 minute (0.2% total sleep time). Arousal analysis revealed total of 360 arousals. The arousal index was 93.5. There were 39 spontaneous arousals. The spontaneous arousal index was 11.4. The apnea-hypopnea index was 95.8. Primarily supine data was obtained. There were 73 obstructive apneas, 75 mixed apneas, 16 central apneas and 208 hypopneas recorded. Baseline oxygen saturation was 88.9%. Lowest oxygen saturation was 73%. 105.6 minutes oxygen saturation less than 88% documented. Snoring was frequent and mild. Transcutaneous CO2 was recorded. It ranged from 36.5-47.9 mm. Following the initial recording positive pressure therapy was initiated. Total time in bed was 127.5 minute. Total sleep time 109 minutes. Sleep efficiency was 85.5%. Latency lights out to stage N1 was 10 minute, latency stage N2 from sleep onset was 0.5 minute, latency to stage N3 from sleep onset was 88 minute and latency to stage REM from sleep onset was 29.5 minutes. Sleep stage recording stage wake of 18.5 minutes. Stage non-REM comprised 72 minute (66.1% total sleep time). This includes stage N1 was 3 minute (2.8% total sleep time), stage N2 47 minute (43.1% total sleep time), and stage N3 of 22 minute (20.2% total sleep time). Stage REM comprised 37 minute (33.9% total sleep time). Positive pressure therapy was initiated and continuous positive pressures of 4- 12 cm water were attempted. Continuous positive pressure therapy of 12 cm was found to be optimal. Total recording time was 83 minutes. Sleep efficiency was 94%. Adequate REM supine was obtained. The residual AHI was 3.5. Lowest oxygen saturation was 88%. Average oxygen saturation was 94%. Patient demonstrated poor tolerance to Continuous positive airway pressure therapy and rib the mask off and sleeps without therapy for the remaining test duration. Limb movement recording revealed no periodic limb movements. Average heart rate during wake was 58.9, and sleep was 58.6. Impression: 1. Reduced sleep efficiency 2. Severe obstructive sleep disorder breathing. 3. 105.6 minutes oxygen saturation less than 88% documented 4. Continuous positive pressure therapy of 12 cm was found to be optimal 5. A small/medium Omer fullface mask was used 6. Patient demonstrated poor tolerance to continuous positive pressure therapy and ripped the mask off during titration. 7. Sleep hygiene should be reviewed to assess factors that may improve sleep quality. 8.Weight management and regular exercise should be initiated or continued 9.Avoid alcohol sedatives and other SALESPERSON FURS depression that may worsen sleep apnea and disrupt normal sleep architecture 10. Patients with sleep apnea may have significant daytime hypersomnolence. If that is the case, driving or handling heavy machinery should be avoided until the apnea and excessive sleepiness have resolved. Narrative Winston Wu MD - 03/05/2025 2:38 PM CDT In lab study is ready for review Evelyn Hurtado [facility] ORDERABLES Final Result from Last 3 Months Insurance [facility] MEDICARE MEDICARE [facility] [place] Care Teams Computing Machine Operator Relationship Specialty Start Date End Date Rehan Rodriguez DO PCP - General Internal Medicine 10/23/20
--- OUTSIDE RECORDS SUMMARY | 2025-04-24 14:37 | XMS_ITS | Clinical Summary ---
Author Organization [facility] Address [address] [place] [phone] Care Team Providers Care Barbering Instructor Name Role Phone Rehan Rodriguez DO Primary Care Provider +1- [phone] Allergies No known active allergies Medications ibuprofen [...] 02/2025 Morbid obesity 09/12/2020 Knee pain 04/07/2012 Encounters Date Type Department Care Team Description 03/02/2025 7:15 PM CDT - 03/02/2025 11:59 PM CDT Hospital Encounter [facility] [address] [place] [address] Obstructive sleep apnea (adult) (pediatric) Discharge Disposition: Discharge to home or self care from Last 3 Months Immunizations Immunization Administration Dates Next Due Influenza, Trivalent, Preservative Free, Intramu scular 11/08/2013 Surgical History Surgery Date Site/Laterality Comments TONSILLECTOMY LEG SURGERY Medical History Medical History Date Comments Morbid obesity (HCC) CHF (congestive heart failure) (HCC) Anemia Depression GERD (gastroesophageal reflux disease) [...] on file Legal Sex Male 6:50 AM REGIONAL FACILITIES MANAGER Gender Identity Not on file Sexual Orientation Not on file Obstetrics History Last Filed Vital Signs Vital Sign Reading Time Taken Comments Blood Pressure 164/87 12/11/2020 11:14 AM REGIONAL FACILITIES MANAGER Pulse 80 12/11/2020 11:14 AM REGIONAL FACILITIES MANAGER Temperature 36.3 C (97.3 F) 12/11/2020 11:14 AM REGIONAL FACILITIES MANAGER Respiratory Rate 20 11/26/2020 7:40 PM REGIONAL FACILITIES MANAGER Oxygen Saturation 97% 12/11/2020 11:14 AM REGIONAL FACILITIES MANAGER Inhaled Oxygen Concentration - - Weight 319.5 kg (704 lb 5 oz) 12/11/2020 11:14 A M REGIONAL FACILITIES MANAGER Height 179 cm (5' 10.47) 12/11/2020 11:14 AM CS T Body Mass Index 99.71 12/11/2020 11:14 AM REGIONAL FACILITIES MANAGER Plan of Treatment Health Maintenance Due Date Last Done Comments Depression Screening 1992 Hepatitis C Screening 1992 DTaP/Tdap/Td Vaccine (1 - Tdap) 2003 Hepatitis B Screening 2010 Regular Well Visit/Exam 18-64 2010 Varicella Vaccines (1 of 2 - 13+ 2-dose series) 08/11/2011 Influenza Vaccine (#1) 2025 6, 06/25/2015, 11/08/2013, Additional history exists HPV Vaccines Aged Out No longer eligi ble based on patient's age to complete this topic Pneumococcal vaccine <65 Aged Out No longer eligible based on patient's age to complete this topic Procedures Procedure Name Priority Date/Time Associated Diagnosis [...] excessive daytime fatigue and sleepiness. The patient's V[place] Sleepiness scale score is 4. Past medical [...] or continued 9.Avoid alcohol sedatives and other CLAY WORKER depression that may worsen sleep apnea and disrupt normal sleep architecture 10. Patients with sleep apnea may have significant daytime hypersomnolence. If that is the case, driving or handling heavy machinery should be avoided until the apnea and excessive sleepiness have resolved. Narrative Winston Wu MD - 03/05/2025 2:38 PM CDT In lab study is ready for review Evelyn Hurtado DO [facility] ORDERABLES Final Result from Last 3 Months Insurance [facility] [address] MEDICARE MEDICARE IDPA [facility] Care Teams Barbering Instructor Relationship Specialty Start Date End Date Rehan Rodriguez DO PCP - General Internal Medicine 10/23/20
--- OUTSIDE RECORDS SUMMARY | 2025-04-24 14:37 | XMS_ITS | Encounter Summary ---
Author Organization [facility] Healthcare Address [address] [place] [address] Care Team Providers Care Video Surveillance Technician Name Role Phone Unknown, Notinfmichelle Primary Care Provider Unavail able Rehan Rodriguez DO Primary Care Provider +1- [phone] Encounter Details Date Type Department Care Team (Late st Contact Info) Description 11/19/2017 Telephone [facility] [address] [place] [phone] [place] [id number] [address] Social History Tobacco Use Types Packs/Day Years Used Date Smoking Tobacco: Never Assessed Sex and Gender Information Value Date Recorded Sex Assigned at Not on file Legal Sex Male 6:50 AM GREEN BELT Gender Identity Not on file Sexual Orientation Not on file documented as of this encounter Plan of Treatment Not on file documented as of this encounter Visit Diagnoses Not on filedocumented in this encounter Care Teams Video Surveillance Technician Relationship Specialty Start Date End Date Unknown, Fred PCP - General 04/28/17 10/22/20 Rehan Rodriguez DO PCP - General Internal Medicine 10/23/20 documented as of this encounter
[2025-04-24 19:24] LABS: Alanine Aminotransferase 26 U/L (6-50); Albumin Level 4.0 g/dL (3.5-5.1); Alkaline Phosphatase 75 U/L (38-126); Anion Gap 10 mmol/L (4-12); Aspartate Amino Transferase 45 U/L (17-59); Bilirubin,Total 0.4 mg/dL (0.2-1.3); Blood Urea Nitrogen 11 mg/dL (9-20); Calcium 8.9 mg/dL (8.4-10.2); Carbon Dioxide 26 mmol/L (22-30); Chloride 103 mmol/L (98-107); Estimated Glomerular Filt Rate > 60; Glucose 120 mg/dL (65-110); Potassium 3.8 mmol/L (3.4-5.0); Sodium 139 mmol/L (137-145); Total Protein 8.1 g/dL (6.3-8.2)
[2025-04-24 19:40] LABS: MALB Creatinine Ratio 9.3 mg/g (0-30)
[2025-04-24 19:58] LABS: Thyroid Stimulating Hormone 3.720 uIU/mL (0.465-4.680)
[2025-04-24 21:16] LABS: Hemoglobin A1C 6.4 % (<5.7)
== END 2025-04-24 14:36 | disposition home or self-care (01) ==
LOC: ANHGOSHLAB 14:35
PROVIDERS: PCP Clinical Nurse Specialist; Visit Provider Clinical Nurse Specialist
DX: I10 Essential (primary) hypertension (principal); E03.9 Hypothyroidism, unspecified; I89.0 Lymphedema, not elsewhere classified; E66.9 Obesity, unspecified
CPT/HCPCS: 36415; 80053; 82043; 83036; 84443

== ENCOUNTER 2025-07-27 10:30 | Outpatient (RCR) | payer OTHER, SELFPAY | END 2025-08-21 11:15 | disposition home or self-care (01) | LOC: ANHDMC 10:30 | PROVIDERS: PCP Internal Medicine; Visit Provider Clinical Nurse Specialist | DX: E11.69 Type 2 diabetes mellitus with other specified complication (principal); E66.01 Morbid (severe) obesity due to excess calories; Z71.89 Other specified counseling | CPT/HCPCS: G0108 ==